=== PATIENT | male | born 1965 | race Caucasian/White ===

== ENCOUNTER → 2017-01-05 | Outpatient (CLI) | payer MEDICARE | LOC: EXRD 14:05 | DX: J20.9 Acute bronchitis, unspecified (principal) | CPT/HCPCS: 71020 ==

== ENCOUNTER → 2017-01-20 | Outpatient (CLI) | payer MEDICARE | LOC: EXRD 10:05 | DX: M25.521 Pain in right elbow (principal) | CPT/HCPCS: 73080 ==

== ENCOUNTER → 2017-02-22 | Outpatient (CLI) | payer MEDICARE | LOC: EXRD 13:09 | DX: R93.8 Abnormal findings on diagnostic imaging of other specified body structures (principal); J40 Bronchitis, not specified as acute or chronic; J42 Unspecified chronic bronchitis | CPT/HCPCS: 71020 ==

== ENCOUNTER 2022-06-26 03:08 | Emergency (ER) | payer OTHER ==
[2022-06-26 03:37] LABS: HEMOGLOBIN 14.5 gm/dl (14.0-17.5); RED BLOOD COUNT 4.78 M/UL (4.20-5.50); WHITE BLOOD COUNT 3.3 K/UL (4.5-11.0)
[2022-06-26 04:15] LABS: BUN/CREATININE RATIO 9 (0-10)
[2022-06-26] MEDS ORDERED: ZOFRAN ODT 4 MG4 MG SL (06:39)
== END 2022-06-26 07:22 | disposition home or self-care (01) ==
LOC: ER1 03:08
PROVIDERS: Student in an Organized Health Care Education/Training Program
DX: U07.1 COVID-19 (principal); E86.0 Dehydration; E11.9 Type 2 diabetes mellitus without complications; J44.9 Chronic obstructive pulmonary disease, unspecified
CPT/HCPCS: 0240U; 71045; 80053; 82550; 82553; 84484; 85025; 96361; 96374; 99283; J2405